=== PATIENT | male | born 1990 | race Caucasian/White ===

== ENCOUNTER 2017-02-26 05:06 | Emergency (ER) | payer OTHER ==
[2017-02-26 05:13] VITALS: BMI 20.7
[2017-02-26] MEDS ORDERED: SODIUM CHLORIDE 1,000 ML IV ONE (05:31)
[2017-02-26] MEDS ORDERED: ACETAMINOPHEN 1000 MG/100 ML VIAL (NON FORMULARY) IVPB ONE (05:31)
--- NOTE | 2017-02-26 05:40 | PDOC ---
History of Present Illness - General Chief Complaint: Cold Symptoms Stated Complaint: FEVER, BACK & NECK PAIN Time Seen by Provider: 02/26/17 05:18 History Source: Patient Exam Limitations: No Limitations - History of Present Illness Initial Comments: 02/26/17 05:40 This is a 26-year-old male who comes in with his parents for evaluation of fever and bodyaches. Patient is otherwise healthy however he says that he has been having some skeletal muscular type upper back pain primarily on the right hand side. Patient said that he went to work yesterday came home his back was hurting him but he is otherwise fine when he went to bed. Patient said he woke up just prior to coming in at about 4:30 this morning with a fever of 102 shaking chills and severe pain in the side of his neck back upper back and radiating down his right arm. Patient denies any headache or change in vision. Patient denies any recent travel. Patient denies any similar symptoms. Patient denies any IV drug use or being immunocompromised for any reason. Patient said he is otherwise healthy. PAST MEDICAL HISTORY: no significant history PAST SURGICAL HISTORY: no significant history FAMILY HISTORY: no pertinant history SOCIAL HISTORY: Pt lives with family and is employed. MEDICATIONS: reviewed ALLERGIES: As per nursing notes Review of Systems General: No fevers or chills, no weakness, no weight loss HEENT: No change in vision. No sore throat,. No ear pain CardioVascular: No chest pain or shortness of breath Respiratory:No cough, or wheezing. Gastrointestinal: no nausea, vomitting, diarrhea or constipation, No rectal bleeding Genitourinary: No dysuria, hematuria, or frequency Musculoskeletal: No joint or muscle pain or swelling Neurologic: No headache, vertigo, dizziness or loss of consciousness Psychiatric: nor depression Skin: No rashes or easy bruising Endocrine: no increased thirst or abnormal weight change Allergic: no skin or latex allergy All other systems reviewed and normal Exam: General: Well-nourished well-developed individual, no acute distress HEENT: Throat: Normal, tonsils normal, no erythema or exudate Neck: Supple, no meningeal signs, no lymphadenopathy, there is some diffuse tenderness on palpation of the right lateral neck with some muscle spasm. Eyes::Pupils equal reactive and round, extraocular motion intact Chest: Nontender to palpation Back: There is tenderness on palpation of the right upper back, upper thoracic spine, posterior shoulder and CVA area diffusely, There is no focal area of increased tenderness. Cardiac: S1-S2 normal, regular rate and rhythm, no murmurs rubs or gallops Respiratory: Lungs clear to auscultation bilateral Abdomen: Soft, nondistended, normal bowel sounds, nontender to palpation diffusely Extremities: Warm, dry, no cyanosis, clubbing, or edema Skin: No rashes Neuro: Alert and oriented x3, nonfocal exam, grossly intact, normal gait Psych: Normal mood and affect. 06:00 patient vomitted times one in ED, undigested food. 07:00 Care of patient transferred to Dr. Camara at 7 AM. Case discussed in detail with oncoming Emergency Physician including history, physical exam and ancillary studies. Oncoming Emergency Physician has assumed care for the patient and will complete the evaluation and treatment. Patient is aware of the plan. Pt is clinically unchanged and stable. Past History - Past Medical History Allergies/Adverse Reactions: Allergies Allergy/AdvReac Type Severity Reaction Status Date / Time No Known Allergies Allergy Verified 06/23/16 17:11 Home Medications: Ambulatory Orders Diazepam [Valium] 5 mg PO Q8H PRN #12 tablet MDD 3 02/26/17 Naproxen [Naprosyn] 500 mg PO BID PRN #20 tablet 02/26/17 Anemia: (SEASONAL ALLERGIES) - Psycho/Social/Smoking Cessation Hx Anxiety: No Suicidal Ideation: No Smoking History: Current every day smoker Have you smoked in the past 12 months: Yes Number of Cigarettes Smoked Daily: 20 Information on smoking cessation initiated: Yes 'Breaking Loose' booklet given: 02/26/17 Hx Alcohol Use: No Drug/Substance Use Hx: No Substance Use Type: None *Physical Exam - Vital Signs Last Vital Signs Temp Pulse Resp BP Pulse Ox 102.6 F H 122 H 18 123/75 122 H 02/26/17 05:18 02/26/17 05:08 02/26/17 05:08 02/26/17 05:08 02/26/17 05:08 ED Treatment Course - LABORATORY CBC & Chemistry Diagram: 02/26/17 05:50 02/26/17 05:50 *DC/Admit/Observation/Transfer Diagnosis at time of Disposition: Viral syndrome, Lymphadenopathy, Muscle strain - Discharge Dispostion Disposition: HOME Condition at time of disposition: Improved - Prescriptions Prescriptions: Naproxen [Naprosyn] 500 mg PO BID PRN #20 tablet PRN Reason: Pain Diazepam [Valium] 5 mg PO Q8H PRN #12 tablet MDD 3 PRN Reason: Pain - Referrals Referrals: Tigre Zabala MD [Primary Care Provider] - - Patient Instructions Printed Discharge Instructions: Muscle Strain, DI for Viral Upper Respiratory Infection -- Adult, DI for Lymphadenopathy Additional Instructions: Door evaluation today did not show any evidence of bacterial infection. It seems that your pain is localized to the muscles of your neck and shoulder and to probably have a viral infection that is making it worse. Your MRI did not show any evidence of abscess in the neck, but it did show swollen lymph nodes, known as lymphadenopathy. It is very important that your primary care physician perform further evaluations of this lymphadenopathy to make sure that it goes away. Return to the emergency department immediately with ANY new, persistent or worsening symptoms. You MUST call and follow up with your doctor tomorrow. Please make sure your doctor reviews the results of your emergency department evaluation. - Post Discharge Activity Work/School Note: Back to Work
[2017-02-26] MEDS ORDERED: KETOROLAC TROMETHAMINE 30 MG/1 ML VIAL IVPUSH ONE (05:59)
[2017-02-26] MEDS ORDERED: KETOROLAC TROMETHAMINE 30 MG/1 ML VIAL ONE (06:02)
[2017-02-26] MEDS ORDERED: ONDANSETRON 4 MG/2 ML VIAL ONE (06:02)
[2017-02-26] MEDS: ONDANSETRON 4 MG/2 ML VIAL IVPUSH ONE ×2 (06:09→07:23)
--- NOTE | 2017-02-26 06:49 | PDOC ---
*Physical Exam - Vital Signs Last Vital Signs Temp Pulse Resp BP Pulse Ox 102.6 F H 122 H 18 123/75 98 02/26/17 05:18 02/26/17 05:08 02/26/17 05:08 02/26/17 05:08 02/26/17 05:08 - Physical Exam Comments: 02/26/17 06:48 Sign-out received from outgoing Emergency Physician Pt interviewed and examined He is a 26-year-old, immunocompetent male, with no significant past medical history, who presents with 3 days of right-sided neck, shoulder, upper back pain and 12 hours of fever with chills as well as generalized weakness. He performs physical labor, and his neck/back/shoulder pain is a dull ache, constant, worsened by movement or palpation. He has NO midline neck pain. The pain in his neck does radiate slightly down the right arm. He denies headache, generalized neck pain. He denies rash, tick exposure. He denies sore throat, earache. He denies cough, dyspnea. He denies abdominal pain, nausea, vomiting, diarrhea. He denies urinary frequency/urgency/hesitancy/dysuria/hematuria. He denies upper or lower extremity paresthesias or weakness. He had 2 SIRS criteria on presentation, fever and tachycardia He has no left-sided neck tenderness or midline neck tenderness. He has tenderness in the distribution of the right trapezius muscle. Tenderness reproduces his symptoms. He has pain in that area with any range of motion at the shoulder. Chest x-ray, shoulder x-ray, thoracic spine x-ray reviewed by Dr. Munoz and myself, without any acute pathology Labs pending He states he feels much better Dr. Munoz reports that he looks subjectively much improved His father, who is at the bedside, agrees that he looks much improved Labs pending 02/26/17 08:51 The patient feels better and has increased range of motion in his neck and shoulder Labs noted including elevated CRP Given that he meets diagnostic for sepsis, has a high fever, looked toxic to initial emergency physician, has severe right sided neck pain with elevated CRP , I feel that we need to rule our cervical spinal epidural abscess Case discussed with Dr. George and MRI approved I have reached out to Dr. Hernández and am awaiting call-back In the interest of avoiding a delay in patient care, we will proceed 02/26/17 10:[address] George and report given to me by phone He has anterior and cervical lymphadenopathy but no evidence of spinal or soft tissue abscess He is now very well appearing, afebrile and normocardic He has greatly decreased neck pain He is eating and drinking, smiling in bed, and would like to go home Hi neck is supple. He has no headache and no photophobia. He again denies tick exposure and rash. With a neck MRI that showed only lymphadenopathy, a well appearing patient, normal vital signs, only minimal leukocytosis and no evidence of a bacterial infection, he most likely has a viral syndrome. He seems reliable, as do his parents, and he will return with any worsening or new symptoms. Clinical impression: Viral syndrome Cervical lymphadenopathy Musculoskeletal neck pain He understands the importance of following up with his primary care physician for further evaluation of the lymphadenopathy to ensure resolution I discussed the physical exam findings, ancillary test results and final diagnoses with the patient. I answered all of the patient's questions. The patient was satisfied with the care received and felt comfortable with the discharge plan and treatment plan. The patient will call their primary care physician within 24 hours to arrange follow-up and will return to the Emergency Department with any new, persistent or worsening symptoms. 02/26/17 17:08 ED Treatment Course - LABORATORY CBC & Chemistry Diagram: 02/26/17 05:50 02/26/17 05:50 - Medications Given in the ED: ED Medications Discontinued Medications Generic Name Dose Route Start Last Admin Trade Name Alvinq PRN Reason Stop Dose Admin Acetaminophen 1,000 mg 02/26/17 05:31 02/26/17 05:56 Ofirmev Injection - IVPB 02/26/17 05:32 1,000 mg ONCE ONE Administration Sodium Chloride 1,000 mls @ 1,000 mls/hr 02/26/17 05:31 02/26/17 05:55 Normal Saline - IV 02/26/17 06:30 1,000 mls/hr .Q1H ONE Administration Ketorolac Tromethamine 30 mg 02/26/17 05:59 02/26/17 06:09 Toradol Injection - IVPUSH 02/26/17 06:00 30 mg ONCE ONE Administration *DC/Admit/Observation/Transfer Diagnosis at time of Disposition: Viral syndrome, Lymphadenopathy, Muscle strain - Discharge Dispostion Disposition: HOME Condition at time of disposition: Improved - Prescriptions Prescriptions: Naproxen [Naprosyn] 500 mg PO BID PRN #20 tablet PRN Reason: Pain Diazepam [Valium] 5 mg PO Q8H PRN #12 tablet MDD 3 PRN Reason: Pain - Referrals Referrals: Tigre Zabala MD [Primary Care Provider] - - Patient Instructions Printed Discharge Instructions: DI for Viral Upper Respiratory Infection -- Adult, Muscle Strain, DI for Lymphadenopathy Additional Instructions: Door evaluation today did not show any evidence of bacterial infection. It seems that your pain is localized to the muscles of your neck and shoulder and to probably have a viral infection that is making it worse. Your MRI did not show any evidence of abscess in the neck, but it did show swollen lymph nodes, known as lymphadenopathy. It is very important that your primary care physician perform further evaluations of this lymphadenopathy to make sure that it goes away. Return to the emergency department immediately with ANY new, persistent or worsening symptoms. You MUST call and follow up with your doctor tomorrow. Please make sure your doctor reviews the results of your emergency department evaluation. - Post Discharge Activity Work/School Note: Back to Work
[2017-02-26 07:14] LABS: BASOPHIL 0.3 % (0-2.0); EOSINOPHIL 0.5 % (0-4.5); MCH 31.1 pg (25.7-33.7); MCHC 34.7 g/dl (32.0-35.9); MEAN CELL VOLUME 89.6 fl (80-96); MEAN PLT VOLUME 8.8 fl (7.5-11.1); NEUTROPHILS 82.5 % (42.8-82.8); PLATELET COUNT 203 K/MM3 (134-434); WHITE BLOOD COUNT 11.1 K/mm3 (4.0-10.0)
[2017-02-26 07:35] VITALS: PULSE 94; TEMP 99.8
[2017-02-26 07:43] LABS: ALBUMIN 4.2 g/dl (3.4-5.0); ALK PHOS 126 U/L (45-117); ANION GAP 7 (8-16); BILIRUBIN,TOTAL 0.4 mg/dL (0.2-1.0); CALCIUM 8.9 mg/dL (8.5-10.1); CO2 27 mmol/L (21-32); CREATININE 1.1 mg/dL (0.7-1.3); GLUCOSE,RANDOM 126 mg/dL (74-106); SGOT/AST 14 U/L (15-37); SGPT/ALT 18 U/L (12-78); TOT PROT 7.6 g/dl (6.4-8.2)
[2017-02-26 07:45] LABS: TROPONIN I < 0.02 ng/ml (0.00-0.05)
[2017-02-26] MEDS ORDERED: SODIUM CHLORIDE 1,000 ML IV STA (07:46)
[2017-02-26] MEDS ORDERED: diazePAM 5 MG TABLET PO ONE (07:49)
[2017-02-26 07:53] VITALS: BP 123/75
[2017-02-26] MEDS ORDERED: diazePAM 5 MG TABLET ONE (07:53)
[2017-02-26 09:08] LABS: D-DIMER < 200 ng/ml (<200-235)
[2017-02-26 09:09] LABS: URINE APPEARANCE CLEAR; URINE BILIRUBIN NEGATIVE (NEGATIVE); URINE BLOOD NEGATIVE (NEGATIVE); URINE COLOR YELLOW; URINE GLUCOSE (UA) NEGATIVE (NEGATIVE); URINE KETONE NEGATIVE (NEGATIVE); URINE PROTEIN NEGATIVE (NEGATIVE)
[2017-02-26 09:10] LABS: URINE LEUK ESTERASE NEGATIVE (NEGATIVE); URINE NITRITE NEGATIVE (NEGATIVE); URINE UROBILINOGEN NEGATIVE (0.2-1.0)
--- NOTE | 2017-02-26 16:14 | EKG ---
Test Reason : Blood Pressure : / mmHG Vent. Rate : 110 BPM Atrial Rate : 110 BPM P-R Int : 134 ms QRS Dur : 086 ms QT Int : 284 ms P-R-T Axes : 064 064 057 degrees QTc Int : 384 ms SINUS TACHYCARDIA POSSIBLE LEFT ATRIAL ENLARGEMENT NO PREVIOUS ECGS AVAILABLE Confirmed by MD JORDY, ROCHELLE ([id number]) on 02/26/2017 4:14:08 PM Referred By: MD DAWSON Confirmed By:ROCHELLE SPENCE MD
[2017-03-01 00:06] LABS: BABESIA MICROTI ANTIBODY IGG <1:10 (Neg:<1:10)
== END 2017-02-26 10:57 | disposition home or self-care (01) ==
LOC: FER 05:06
PROC: 3E033NZ Introduction of Analgesics, Hypnotics, Sedatives into Peripheral Vein, Percutaneous Approach (ICD-10-PCS; principal; 2017-02-26)
PROC: 3E0333Z Introduction of Anti-inflammatory into Peripheral Vein, Percutaneous Approach (ICD-10-PCS; 2017-02-26)
PROC: 3E0337Z Introduction of Electrolytic and Water Balance Substance into Peripheral Vein, Percutaneous Approach (ICD-10-PCS; 2017-02-26)
DX: R59.1 Generalized enlarged lymph nodes (principal); B34.9 Viral infection, unspecified; T14.8 Other injury of unspecified body region; X58.XXXA Exposure to other specified factors, initial encounter; Y93.9 Activity, unspecified; Y92.9 Unspecified place or not applicable; F17.210 Nicotine dependence, cigarettes, uncomplicated; J30.2 Other seasonal allergic rhinitis
CPT/HCPCS: 36415; 70543-TC; 71020-TC; 72070-TC; 73030-TC-RT; 80053; 81003; 82550; 83605; 83690; 84484; 85025; 85379; 85610; 86140; 86618; 86666; 86753; 87040; 87086; 93005; 99284-25

== ENCOUNTER 2017-02-27 15:00 | Observation (INO) | payer OTHER ==
[2017-02-27 15:30] VITALS: BMI 20.7
[2017-02-27] MEDS ORDERED: SODIUM CHLORIDE 0.9% 500 ML INFUS.BAG IV ONE (15:49)
--- NOTE | 2017-02-27 16:07 | PDOC ---
History of Present Illness <Bre Celestin - Last Filed: 02/27/17 18:19> - History of Present Illness Initial Comments: 02/27/17 16:10 26-year-old male with a negative past medical history He initially developed right posterior shoulder right sided neck and right upper back pain, and then developed a fever to 103 at 4 AM approximately 12 hours after developing the pain initially He came to the emergency department here at 5 AM TUESDAY, with a temperature close to 103 He denies any headache, rash, or tick exposure He does admit to a mild sore throat at this time, but no earache He denies any cough or sputum, wheezing or shortness of breath He denies any abdominal pain nausea vomiting or diarrhea He denies any urinary symptoms He denies any numbness or tingling He was seen initially with a temperature close to 103 and a heart rate of 122 He was seen initially by Dr. Munoz, and then had a continuation of care with Dr. Katz he During the course of his visit yesterday, his white count was 11.0 with a left shift His lactic acid was 1.2 The rest of his comp was unremarkable He C-reactive protein was 1.8 Blood cultures urine cultures, and babesiosis and ehrlichiosis titers were drawn He also had x-rays of the shoulder, T-spine, and chest, which were negative He was given IV fluid The pain was somewhat worse with musculoskeletal maneuvers, but still present at rest He did have an MRI done, which showed no epidural abscess Mild prominence of the adenoid soft tissue as well as the palatine tonsils Multiple enlarged cervical and posterior triangle lymph nodes No obvious evidence of disc I this or osteomyelitis The patient did feel better after medications and IV hydration, and was sent out with Naprosyn and Valium, to follow up with Dr. Zabala As of this time, his blood cultures are negative at 24 hours, and his tick borne illness panel is pending He states he is still intermittently running a fever He states that last night his temperature went down to 96.0, and then back up to 103 He is feeling somewhat better now, but still having right upper back/ periscapular pain, right neck pain, and right shoulder pain He states that he did have diarrhea during the night after taking Naprosyn He states his temperature was 101 this morning He has not taken any antibiotics He denies any other complaints at this time, and the remainder of the review of systems is negative <Beatriz Rodarte - Last Filed: 02/27/17 18:49> - General Chief Complaint: Respiratory Stated Complaint: REVISIT FOR FEVER Time Seen by Provider: 02/27/17 15:21 Past History <Bre Celestin - Last Filed: 02/27/17 18:19> - Past Medical History Anemia: (SEASONAL ALLERGIES) - Psycho/Social/Smoking Cessation Hx Anxiety: No Suicidal Ideation: No Smoking History: Current every day smoker Have you smoked in the past 12 months: Yes Number of Cigarettes Smoked Daily: 20 Information on smoking cessation initiated: Yes 'Breaking Loose' booklet given: 02/26/17 Hx Alcohol Use: Yes (OCCASIONAL BEER) Drug/Substance Use Hx: No Substance Use Type: None <Beatriz Rodarte - Last Filed: 02/27/17 18:49> - Past Medical History Allergies/Adverse Reactions: Allergies Allergy/AdvReac Type Severity Reaction Status Date / Time No Known Allergies Allergy Verified 06/23/16 17:11 Home Medications: Ambulatory Orders Diazepam [Valium] 5 mg PO Q8H PRN #12 tablet MDD 3 02/26/17 Naproxen [Naprosyn] 500 mg PO BID PRN #20 tablet 02/26/17 Review of Systems - Review of Systems Able to Perform ROS?: Yes Comments:: 02/27/17 16:18 12 point review of systems is as per history of present illness and otherwise negative <Beatriz Rodarte - Last Filed: 02/27/17 18:49> *Physical Exam - Vital Signs Last Vital Signs Temp Pulse Resp BP Pulse Ox 99.1 F 102 H 16 114/70 100 02/27/17 15:06 02/27/17 15:06 02/27/17 15:06 02/27/17 15:06 02/27/17 15:06 <Bre Celestin - Last Filed: 02/27/17 18:19> - Vital Signs Last Vital Signs Temp Pulse Resp BP Pulse Ox 99.1 F 102 H 16 114/70 100 02/27/17 15:06 02/27/17 15:06 02/27/17 15:06 02/27/17 15:06 02/27/17 15:06 - Physical Exam Comments: 02/27/17 16:19 Physical exam Last Vital Signs Temp Pulse Resp BP Pulse Ox 99.1 F 102 H 16 114/70 100 02/27/17 15:06 02/27/17 15:06 02/27/17 15:06 02/27/17 15:06 02/27/17 15:06 GENERAL: The patient is awake, alert, and fully oriented, and in no apparent distress. HEAD: Normal with no signs of trauma. EYES: sclera anicteric, conjunctiva are normal. ENT: nares patent, oropharynx clear without exudates. Moist mucous membranes. NECK: Patient can almost touch his chin to his chest, but not completely due to right lateral trapezius spasm, but no midline tenderness Right sided posterior cervical adenopathy is palpated, and to a lesser extent right sided anterior cervical adenopathy is palpated The thyroid is not enlarged or tender LUNGS: Breath sounds equal, clear to auscultation bilaterally. No wheezes, and no crackles. HEART: Regular rate and rhythm, normal S1 and S2 without murmur, rub or gallop. BACK: There is exquisite tenderness to palpation of the periscapular area, and right upper back, into the right shoulder and right lateral trapezius muscle There is muscle spasm, and diminished movement There is no erythema or redness, or warmth, and the shoulder is not swollen There is no tenderness on the C-spine T-spine or LS-spine There is no CVA tenderness ABDOMEN: Soft, nontender, normoactive bowel sounds. No guarding, no rebound. No masses appreciated. EXTREMITIES: Normal range of motion, no edema. No clubbing or cyanosis. No cords, erythema, or tenderness. NEUROLOGICAL: Cranial nerves II through XII grossly intact. Normal speech, normal gait. Motor 5 out of 5 and equal in the upper and lower extremities bilaterally Alert and oriented 3, grossly nonfocal neurologic exam PSYCH: Normal mood, normal affect. SKIN: Warm, Dry, no rashes seen <Beatriz Rodarte - Last Filed: 02/27/17 18:49> ED Treatment Course - LABORATORY CBC & Chemistry Diagram: 02/27/17 16:00 02/27/17 16:00 - ADDITIONAL ORDERS Additional order review: Laboratory Results 02/27/17 02/27/17 02/27/17 16:00 16:00 16:00 Sodium Potassium Chloride Carbon Dioxide Anion Gap BUN Creatinine Creat Clearance w eGFR Random Glucose Lactic Acid 0.933 Calcium Magnesium Total Bilirubin AST ALT Alkaline Phosphatase Creatine Kinase Troponin I C-Reactive Protein 8.0 H D Cancelled Total Protein Albumin 02/27/17 02/27/17 16:00 16:00 Sodium 137 Potassium 4.0 Chloride 104 Carbon Dioxide 25 Anion Gap 8 BUN 7 Creatinine 0.8 Creat Clearance w eGFR > 60 Random Glucose 90 Lactic Acid Calcium 8.8 Magnesium 1.7 L Total Bilirubin 0.4 AST 17 ALT 11 Alkaline Phosphatase 71 Creatine Kinase 64 Troponin I < 0.03 L C-Reactive Protein Total Protein 6.7 Albumin 3.6 02/27/17 15:40 Group A Strep Rapid Antigen - Final Throat NEGATIVE FOR THE ANTIGEN OF BETA HEMOLYTIC STREP GROUP A 02/27/17 16:00 RBC 4.91 MCV 87.9 MCHC 34.0 RDW 12.3 MPV 8.8 - Medications Given in the ED: ED Medications Discontinued Medications Generic Name Dose Route Start Last Admin Trade Name Freq PRN Reason Stop Dose Admin Acetaminophen 1,000 mg 02/27/17 17:53 02/27/17 18:05 Ofirmev Injection - IVPB 02/27/17 17:54 1,000 mg ONCE ONE Administration Sodium Chloride 1,000 ml 02/27/17 15:49 02/27/17 16:00 Normal Saline - IV 02/27/17 15:50 1,000 ml ONCE ONE Administration <Bre Celestin - Last Filed: 02/27/17 18:19> - LABORATORY CBC & Chemistry Diagram: 02/27/17 16:00 02/27/17 16:00 - RADIOLOGY Radiology Studies Ordered: Category Date Time Status CHEST CT WITHOUT CONTRAST [CT] Stat CT Scan 02/27/17 15:48 Ordered - Medications Given in the ED: ED Medications Discontinued Medications Generic Name Dose Route Start Last Admin Trade Name Freq PRN Reason Stop Dose Admin Sodium Chloride 1,000 ml 02/27/17 15:49 02/27/17 16:00 Normal Saline - IV 02/27/17 15:50 1,000 ml ONCE ONE Administration <Beatriz Rodarte - Last Filed: 02/27/17 18:49> Medical Decision Making - Medical Decision Making 02/27/17 18:[address] Call [address] to PCP Dr[address] Tigre Zabala at [phone]. Awaiting call back. <Bre Celestin - Last Filed: 02/27/17 18:19> - Medical Decision Making 02/27/17 16:35 Continuing symptomatology, although somewhat less then yesterday Exquisite right lateral trapezius right posterior periscapular, and right upper back and shoulder tenderness with minimal musculoskeletal movement, and also to palpation at rest No headache, no focal neurologic findings Extensive workup done yesterday Would recheck blood work at this time, hydrate, control pain Will check a Monospot and rapid strep Will check CT scan of the chest to rule out a right upper lobe or right periapical collection causing the symptoms 02/27/17 17:47 CT scan of the chest without-this is an imaging flight communications specialist report Referring Physician: Beatriz Britt Patient Name: Kushal Gonzalez THIS IS A PRELIMINARY REPORT FROM [facility] EXAM: CT chest without contrast IMAGES: [id number] DATE OF EXAM: 2017-02-27 16:36:51.0 REASON FOR EXAM: Rule out abscess or collections COMPARISON: None Findings: A few scattered nonspecific bilateral subcentimeter pulmonary nodules. Minimal mucous debris in the trachea. Mild atelectasis and scarring in the lungs. No acute infiltrates, pleural effusions, or pneumothorax. 2.7 cm right pericardial cyst. Minimal gynecomastia. Mild bilateral nephrolithiasis. No evidence for abscess or drainable fluid collections. THIS DOCUMENT HAS BEEN ELECTRONICALLY SIGNED Tigre Torres MD 02/27/2017 17:19 ALEXY Marin Please call [facility] [phone] ([phone]) with questions. 02/27/17 18:26 Laboratory Results - last 24 hr 02/27/17 02/27/17 02/27/17 16:00 16:00 16:00 WBC 7.8 RBC 4.91 Hgb 14.7 Hct 43.2 MCV 87.9 MCHC 34.0 RDW 12.3 Plt Count 186 MPV 8.8 Sodium 137 Potassium 4.0 Chloride 104 Carbon Dioxide 25 Anion Gap 8 BUN 7 Creatinine 0.8 Creat Clearance w eGFR > 60 Random Glucose 90 Lactic Acid Calcium 8.8 Magnesium 1.7 L Total Bilirubin 0.4 AST 17 ALT 11 Alkaline Phosphatase 71 Creatine Kinase 64 Troponin I < 0.03 L C-Reactive Protein Total Protein 6.7 Albumin 3.6 02/27/17 02/27/17 02/27/17 16:00 16:00 16:00 WBC RBC Hgb Hct MCV MCHC RDW Plt Count MPV Sodium Potassium Chloride Carbon Dioxide Anion Gap BUN Creatinine Creat Clearance w eGFR Random Glucose Lactic Acid 0.933 Calcium Magnesium Total Bilirubin AST ALT Alkaline Phosphatase Creatine Kinase Troponin I C-Reactive Protein Cancelled 8.0 H D Total Protein Albumin CRP has gone up to 8 today Lactic 0.9 The remainder improved from yesterday Given that he is still spiking fevers, and the CRP continues to increase, would like to place in observation for further workup Case discussed with Dr. Zabala-will place in observation Will call Dr. Askew for ID 02/27/17 18:46 Patient denies any history of IV drug abuse, or steroid use He denies any history of snorting drugs He denies any personal history of malignancy Case discussed with , ID Will start coverage with Zosyn and doxycycline Will see patient in consultation <Beatriz Rodarte - Last Filed: 02/27/17 18:49> *DC/Admit/Observation/Transfer <Bre Celestin - Last Filed: 02/27/17 18:19> - Discharge Dispostion Admit: Yes <Beatriz Rodarte - Last Filed: 02/27/17 18:49> Diagnosis at time of Disposition: Fever of unknown origin (FUO), Musculoskeletal pain - Discharge Dispostion Condition at time of disposition: Good - Referrals Referrals: Tigre Zabala MD [Primary Care Provider] -
[2017-02-27 16:30] LABS: MCH 29.9 pg (25.7-33.7); MEAN CELL VOLUME 87.9 fl (80-96); MEAN PLT VOLUME 8.8 fl (7.5-11.1); PLATELET COUNT 186 K/MM3 (134-434); RDW 12.3 % (11.9-15.9); WHITE BLOOD COUNT 7.8 K/mm3 (4.0-10.8)
[2017-02-27 16:46] LABS: CPK(DFH) 64 IU/L (38-174)
[2017-02-27 16:50] LABS: ALBUMIN 3.6 g/dl (3.5-5.0); ALK PHOS 71 U/L (32-92); ANION GAP 8 (8-16); BILIRUBIN,TOTAL 0.4 mg/dl (0.2-1.0); CALCIUM 8.8 mg/dl (8.4-10.2); CO2 25 mmol/L (22-28); COCKROFT - GAULT 125; CREATININE 0.8 mg/dl (0.6-1.3); GLUCOSE,RANDOM 90 mg/dl (74-106); MAGNESIUM 1.7 mg/dL (1.8-2.4); SGOT/AST 17 U/L (10-42); SGPT/ALT 11 U/L (10-40); TOT PROT 6.7 g/dl (6.4-8.3)
[2017-02-27 16:55] LABS: TROPONIN I (DFP) < 0.03 ng/ml (0.03-0.50)
[2017-02-27] MEDS ORDERED: ACETAMINOPHEN 1000 MG/100 ML VIAL (NON FORMULARY) IVPB ONE (17:53)
[2017-02-27] MEDS ORDERED: ACETAMINOPHEN INJECTION 100 ML IVPB ONE (18:01)
[2017-02-27] MEDS ORDERED: PIPERACILLIN/TAZOB 3.375 GM 3.375 GM in DEXTROSE 5%-WATER - 50 ML IVPB ONE (18:48)
[2017-02-27] MEDS ORDERED: DOXYCYCLINE INJECTION 100 MG in DEXTROSE 5%-WATER - 100 ML IVPB ONE (18:49)
[2017-02-27] MEDS ORDERED: DOXYCYCLINE HYCLATE 100 MG VIAL ONE (19:05)
[2017-02-27] MEDS ORDERED: PIPERACILLIN/TAZOBACTAM 3.375 GM VIAL IVPB ONE (19:05)
[2017-02-27] MEDS ORDERED: diazePAM 5 MG TABLET PO PRN (19:39)
[2017-02-27] MEDS ORDERED: ACETAMINOPHEN 325 MG TABLET (FP) PO PRN (19:41)
[2017-02-27] MEDS ORDERED: morphine CARPU-JECT 2 MG/1 ML DISP.SYRIN IVPUSH PRN (19:41)
[2017-02-27] MEDS ORDERED: DEXTROSE 5%-0.45% SALINE 1,000 ML IV SCH (19:45)
[2017-02-27] MEDS ORDERED: methylPREDNISolone NA SUCC 40 MG/1 ML VIAL ONE (20:27)
[2017-02-27] MEDS: methylPREDNISolone NA SUCC 40 MG/1 ML VIAL IVPB SCH (20:55)
--- NOTE | 2017-02-27 21:30 | HP ---
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 Has been havign some pain in rigth neck/ scapular area for a couple of weeks, but in past was only mild pain. Does not recall a particular inciting event, but started having fever and increased pain in right neck, along with slight post-nasal drip, about 2-4 days ago. Yesterday in morning had fever of 102 and could hardly move due to pain in back, so came to ED. Had xrays of neck and thoracic spine, which were negative, and also an MRI neck, which did not show any bony abnormalities or abscesses. With IVF and naproxen he felt a little better, so discharged form ED, but about 2AM this morning had fever of 104 and increased upper back/ scapular pain, so came to ED again. Had some tests sent for Lyme and babesiosis and mono (not back yet). Pain is in rigth upper back, between the spine and scapula. No skin lesions seen, no pain directly over spine. Was noted to have posterior cervical adenopathy on MRI done yesterday. Had some diarrhea over night as well, but may have been medication related, as no abd pain or nausea. 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 Home Medications - Allergies Allergies/Adverse Reactions: Allergies Allergy/AdvReac Type Severity Reaction Status Date / Time No Known Allergies Allergy Verified 06/23/16 17:11 - Home Medications Home Medications: Ambulatory Orders Diazepam [Valium] 5 mg PO Q8H PRN #12 tablet MDD 3 02/26/17 Naproxen [Naprosyn] 500 mg PO BID PRN #20 tablet 02/26/17 Family Disease History - Family Disease History Family Disease History: Other: Father (hypertension), Mother (hyperlipidemia) Review of Systems - Review of Systems Eyes: reports: No Symptoms HENT: reports: Throat Pain Cardiovascular: denies: Chest Pain, Palpitations Respiratory: denies: Cough, SOB, Wheezing Gastrointestinal: denies: Abdominal Pain, Nausea Genitourinary: denies: Burning, Discharge, Dysuria Neurological: denies: Change in LOC Physical Examination Vital Signs: Vital Signs Temperature 99.2 F 02/27/17 21:14 Pulse Rate 90 02/27/17 21:14 Respiratory Rate 16 02/27/17 21:14 Blood Pressure 95/49 02/27/17 21:14 O2 Sat by Pulse Oximetry (%) 98 02/27/17 21:14 Constitutional: Yes: Mild Distress (due to right upper back pain) Eyes: Yes: Conjunctiva Clear, EOM Intact, PERRL HENT: Yes: Atraumatic, Normocephalic Neck: Yes: Lymphadenopathy (posterior cervical bilaterally) Cardiovascular: Yes: Regular Rate and Rhythm, S1, S2. No: Murmur Respiratory: Yes: Regular, CTA Bilaterally Gastrointestinal: Yes: Normal Bowel Sounds, Soft. No: Distention, Tenderness Musculoskeletal: Yes: Other (tenderness right upper back, no skin lesions, no erythema) Edema: No Neurological: Yes: Alert, Oriented Labs: Laboratory Results - last 24 hr 02/27/17 02/27/17 02/27/17 16:00 16:00 16:00 WBC 7.8 RBC 4.91 Hgb 14.7 Hct 43.2 MCV 87.9 MCHC 34.0 RDW 12.3 Plt Count 186 MPV 8.8 Sodium 137 Potassium 4.0 Chloride 104 Carbon Dioxide 25 Anion Gap 8 BUN 7 Creatinine 0.8 Creat Clearance w eGFR > 60 Random Glucose 90 Lactic Acid Calcium 8.8 Magnesium 1.7 L Total Bilirubin 0.4 AST 17 ALT 11 Alkaline Phosphatase 71 Creatine Kinase 64 Troponin I < 0.03 L C-Reactive Protein Total Protein 6.7 Albumin 3.6 02/27/17 02/27/17 02/27/17 16:00 16:00 16:00 WBC RBC Hgb Hct MCV MCHC RDW Plt Count MPV Sodium Potassium Chloride Carbon Dioxide Anion Gap BUN Creatinine Creat Clearance w eGFR Random Glucose Lactic Acid 0.933 Calcium Magnesium Total Bilirubin AST ALT Alkaline Phosphatase Creatine Kinase Troponin I C-Reactive Protein Cancelled 8.0 H D Total Protein Albumin Problem List - Problems (1) Fever of unknown origin (FUO) Assessment/Plan: -viral syndrome? Mononucleosis? (mono pending) -given severe pain in upper back with the fevers, will admit for further evaluation -check MRI thoracic spine -(diskitis?) --ID consult -given blood cultures taken will start broad spectrum abx for now Code(s): R50.9 - FEVER, UNSPECIFIED (2) Musculoskeletal pain Assessment/Plan: -with CRP elevated, will start solumedrol for anti-inflammation (not tolerating naproxen) -Brachial Neuritis? herniated tharacic disc? (check MRI 0but this would ot explain fever) Code(s): M79.1 - MYALGIA (3) Lymphadenopathy Assessment/Plan: -due to viral syndrome/ mono? -awaiting further testing results to return Code(s): R59.1 - GENERALIZED ENLARGED LYMPH NODES
[2017-02-28] MEDS ORDERED: PIPERACILLIN/TAZOB 2.25 GM/50 ML PRE-DOCKED BAG IVPB ONE (02:00)
[2017-02-28] MEDS ORDERED: PIPERACILLIN/TAZOB 2.25 GM 50 ML IVPB SCH (02:00)
[2017-02-28 09:02] LABS: BASOPHIL 1.1 % (0-2.0); MCH 29.7 pg (25.7-33.7); MCHC 33.1 g/dl (32.0-35.9); MEAN CELL VOLUME 89.8 fl (80-96); MEAN PLT VOLUME 8.7 fl (7.5-11.1); NEUTROPHILS 81.5 % (42.8-82.8); PLATELET COUNT 180 K/MM3 (134-434); RDW 12.1 % (11.9-15.9); WHITE BLOOD COUNT 5.2 K/mm3 (4.0-10.8)
[2017-02-28 09:07] LABS: ANION GAP 7 (8-16); CALCIUM 8.9 mg/dl (8.4-10.2); CO2 24 mmol/L (22-28); COCKROFT - GAULT 125.68; CREATININE 0.8 mg/dl (0.6-1.3); GLUCOSE,RANDOM 181 mg/dl (74-106)
--- NOTE | 2017-02-28 09:34 | PN ---
Progress Note, Physician Chief Complaint: Mr Gonzalez says he is feeling better today. Back and neck pain much improved. Fevers has resolved. No cp, sob, n/v. - Current Medication List Current Medications: Active Medications Acetaminophen (Tylenol -) 650 mg PO Q4H PRN PRN Reason: FEVER OR PAIN Diazepam (Valium -) 5 mg PO Q8H PRN PRN Reason: MUSCLE SPASMS Dextrose/Sodium Chloride (D5-1/2ns -) 1,000 mls @ 75 mls/hr IV ASDIR [facility] Last Admin: 02/27/17 21:51 Dose: 75 mls/hr Piperacillin Sod/Tazobactam Sod (Zosyn 2.25gm Ivpb (Pre-Docked)) 50 mls @ 100 mls/hr IVPB Q8H-IV KENDRA PRN Reason: Protocol Piperacillin Sod/Tazobactam (Sod 3.375 gm/ Dextrose) 50 mls @ 100 mls/hr IVPB ONCE ONE PRN Reason: Protocol Stop: 02/28/17 09:51 Methylprednisolone Sodium Succinate (Solu-Medrol -) 40 mg IVPB BID@0800,2000 [facility] Last Admin: 02/27/17 20:55 Dose: 40 mg Morphine Sulfate (Morphine Injection -) 2 mg IVPUSH Q4H PRN PRN Reason: MODERATE PAIN - Objective Vital Signs: Vital Signs Temperature 97.4 F L 02/28/17 06:00 Pulse Rate 77 02/28/17 06:00 Respiratory Rate 18 02/28/17 08:45 Blood Pressure 116/49 02/28/17 06:00 O2 Sat by Pulse Oximetry (%) 100 02/28/17 08:44 Constitutional: Yes: Well Nourished, No Distress, Calm Cardiovascular: Yes: Regular Rate and Rhythm. No: Gallop, Murmur, Rub Respiratory: Yes: Regular, CTA Bilaterally. No: Rales, Rhonchi, Wheezes Gastrointestinal: Yes: Normal Bowel Sounds, Soft. No: Distention, Tenderness Extremities: Yes: WNL Edema: No Labs: CBC, BMP 02/28/17 08:40 02/28/17 08:40 Problem List - Problems (1) Fever of unknown origin (FUO) Assessment/Plan: -currently resolved -suspect viral illness -continue antibiotics currently -await ID evaluation -mono negative -parvovirus pending Code(s): R50.9 - FEVER, UNSPECIFIED (2) Musculoskeletal pain Assessment/Plan: -much improved -? secondary to inflammation -continue steroids currently but will taper Code(s): M79.1 - MYALGIA (3) Lymphadenopathy Assessment/Plan: -improving with steroids Code(s): R59.1 - GENERALIZED ENLARGED LYMPH NODES
[2017-02-28] MEDS ORDERED: PIPERACILLIN/TAZOB 3.375 GM 50 ML IVPB ONE (10:00)
[2017-02-28] MEDS ORDERED: methylPREDNISolone NA SUCC 40 MG/1 ML VIAL IVPB SCH (10:00)
[2017-02-28] MEDS: methylPREDNISolone NA SUCC 40 MG/1 ML VIAL IVPB SCH (11:25)
--- NOTE | 2017-02-28 13:35 | CONSULT ---
Consult - text type - Consultation Consultation Note: Orthopedic Consult Note S: 26 y/o male admitted for fever, R shoulder/neck pain. The patient states that on Tuesday he began having pain to the right "shoulder blade and neck." He states that on Tuesday he developed a fever of 104 degrees F, prompting him to go to the ED. He had imaging obtained and was discharged home. He states he was having a persistent fever and then returned to the ED. Since then he notes that his shoulder and neck pain have resolved. He states he has regained full motion and no longer having pain. Denies any trauma/falls/injury. Denies paresthesias. No previous neck, back or shoulder issues. PMH: None PSH: None Social: Denies ETOH, illicits, smoking Family hx: NC O: Vital Signs Temperature 97.4 F L 02/28/17 06:00 Pulse Rate 77 02/28/17 06:00 Respiratory Rate 18 02/28/17 08:45 Blood Pressure 116/49 02/28/17 06:00 O2 Sat by Pulse Oximetry (%) 100 02/28/17 08:44 CBC, BMP 02/28/17 08:40 02/28/17 08:40 VSS. NAD. Afebrile. Cervicothoracic exam: Vertebrae and paraspinal muscles non-tender. Negative Spurling. Full ROM and strength in all directions. R shoulder exam: No deformities. Non-tender. FROM, 5/5 strength infraspinatous, supraspinatous, subscapularis. Negative impingement. Negative Gong. NVID. Thoracic spine radiographs and MRI reviewed demonstrating no fracture/ dislocation or disc pathology. Shoulder radiographs reviewed demonstrating no fracture/dislocation. Orbits/face/neck MRI reviewed demonstrating no fracture/dislocation. A/P: 26 y/o male admitted for fever, likely viral syndrome -No shoulder or spine pathology noted on exam or imaging studies -Pain has resolved -No orthopedic intervention indicated -If any issues, patient can follow up out-patient -Plan discussed with Dr. Blount who was in agreement
--- NOTE | 2017-02-28 14:53 | CONSULT ---
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 patient mentions that the fever came on suddenly and it came with fever and chills Has been havign some pain in right side of the neck/ scapular area for a couple of weeks, but in past was only mild pain. Does not recall a particular inciting event, but started having fever and increased pain in right neck, along with slight post-nasal drip, about 2-4 days ago. patient came to the er and and was worked u[p which included imaging studies and also blood work which were essentially normal patient was discharged one day later he again spiked fevers and also it was found that the crp was very high and high fevers and patinet was admitted to the hospital The interesting fact is that patient has rashes all over the body intermittently which disappear after patient takes benadryl patient got one dose of abx and steroids and patient is now completely asymptomatic - History Source History Provided By: Patient, Family Member Limitations to Obtaining History: No Limitations - Alcohol/Substance Use Hx Alcohol Use: Yes (OCCASIONAL BEER) - Smoking History Smoking history: Current every day smoker Have you smoked in the past 12 months: Yes Aproximately how many cigarettes per day: 20 - Social History 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 Home Medications - Allergies Allergies/Adverse Reactions: Allergies Allergy/AdvReac Type Severity Reaction Status Date / Time No Known Allergies Allergy Verified 06/23/16 17:11 - Home Medications Home Medications: Ambulatory Orders Diazepam [Valium] 5 mg PO Q8H PRN #12 tablet MDD 3 02/26/17 Naproxen [Naprosyn] 500 mg PO BID PRN #20 tablet 02/26/17 Family Disease History - Family Disease History Family Disease History: Other: Father (hypertension), Mother (hyperlipidemia) Review of Systems - Review of Systems Constitutional: reports: Chills, Fever, Other (sweating) Eyes: reports: No Symptoms HENT: reports: No Symptoms Neck: reports: Swollen Glands Cardiovascular: reports: No Symptoms Respiratory: reports: No Symptoms Gastrointestinal: reports: No Symptoms Genitourinary: reports: No Symptoms Musculoskeletal: reports: Joint Pain, Other Integumentary: reports: No Symptoms Neurological: reports: No Symptoms Endocrine: reports: No Symptoms Hematology/Lymphatic: reports: No Symptoms Psychiatric: reports: No Symptoms Physical Exam Vital Signs: Vital Signs Temperature 97.4 F L 02/28/17 06:00 Pulse Rate 77 02/28/17 06:00 Respiratory Rate 18 02/28/17 08:45 Blood Pressure 116/49 02/28/17 06:00 O2 Sat by Pulse Oximetry (%) 100 02/28/17 08:44 Constitutional: Yes: No Distress, Calm, Thin Neck: Yes: Supple Cardiovascular: Yes: Regular Rate and Rhythm Respiratory: Yes: Regular, CTA Bilaterally Gastrointestinal: Yes: Normal Bowel Sounds, Soft Musculoskeletal: Yes: WNL Extremities: Yes: WNL Neurological: Yes: Alert, Oriented Psychiatric: Yes: Alert, Oriented Labs: CBC, BMP 02/28/17 08:40 02/28/17 08:40 Imaging - Results Chest X-ray: Report Reviewed, Image Reviewed Cat Scan: Report Reviewed, Image Reviewed MRI: Report Reviewed, Image Reviewed Assessment/Plan fever lymphadenopathy weakness i think this is more of an immunological/hematological process i doubt it is infectious issue plan no abx continue steroids will send an hiv test rest as per primary
[2017-02-28 15:01] VITALS: BP 114/58; PULSE 67; TEMP 98.3
--- NOTE | 2017-02-28 15:53 | DS ---
Physical Examination Vital Signs: Vital Signs Temperature 98.3 F 02/28/17 15:00 Pulse Rate 67 02/28/17 15:00 Respiratory Rate 17 02/28/17 15:00 Blood Pressure 114/58 02/28/17 15:00 O2 Sat by Pulse Oximetry (%) 100 02/28/17 15:00 Labs: CBC, BMP 02/28/17 08:40 02/28/17 08:40 Discharge Summary Reason For Visit: FEVER OF UNKNOWN ORIGIN (FUO) Current Active Problems Fever of unknown origin (FUO) (Acute) Musculoskeletal pain (Acute) Hospital Course: Mr Gonzalez is a pleasant 26 year old male who came in with fevers and back/ neck pain. He was admitted under observation. He was seen by ortho and ID. Pain resolved with steroids. MRI's were performed, no need for surgical intervention. Fevers do not appear infectious in nature, no need for antibiotics. Currently he is safe for discharge home. Condition: Good - Instructions Diet, Activity, Other Instructions: resume previous diet and activity. Excuse from work until Tuesday (03/04). Follow up with Dr Zabala on (03/03) for evaluation. Referrals: Tigre Zabala MD [Primary Care Provider] - Disposition: HOME - Home Medications Comprehensive Discharge Medication List: Ambulatory Orders Diazepam [Valium] 5 mg PO Q8H PRN #12 tablet MDD 3 02/26/17 Naproxen [Naprosyn -] 500 mg PO BID PRN #20 tablet 02/26/17 Prednisone [Deltasone -] 5 mg PO ASDIR #32 tab 02/28/17
[2017-02-28 17:54] LABS: HIV 1 & 2 AB NEGATIVE; HIV 1 AGp24 NEGATIVE
== END 2017-02-28 16:46 | disposition home or self-care (01) ==
LOC: FER 15:00 → SUPCPDRO 15:00 → FM/S 19:02
PROVIDERS: ADMIT Specialist; ATTEND Specialist
PROC: 3E03329 Introduction of Other Anti-infective into Peripheral Vein, Percutaneous Approach (ICD-10-PCS; principal; 2017-02-27)
PROC: 3E0333Z Introduction of Anti-inflammatory into Peripheral Vein, Percutaneous Approach (ICD-10-PCS; 2017-02-27)
PROC: 3E033NZ Introduction of Analgesics, Hypnotics, Sedatives into Peripheral Vein, Percutaneous Approach (ICD-10-PCS; 2017-02-27)
PROC: 3E0337Z Introduction of Electrolytic and Water Balance Substance into Peripheral Vein, Percutaneous Approach (ICD-10-PCS; 2017-02-27)
PROC: 3E033GC Introduction of Other Therapeutic Substance into Peripheral Vein, Percutaneous Approach (ICD-10-PCS; 2017-02-27)
DX: R50.9 Fever, unspecified (principal); M79.1 Myalgia; F17.210 Nicotine dependence, cigarettes, uncomplicated; R59.1 Generalized enlarged lymph nodes
CPT/HCPCS: 36415; 71250-TC; 72147-TC; 80048; 80053; 82550; 83605; 83735; 84484; 85025; 85027; 86140; 86308; 86747; 87070; 87077; 87389; 87430; 99284-25; C1887; G0378

== ENCOUNTER 2021-08-21 04:44 | Day surgery (SDC) | payer BC ==
[2021-08-17 18:17] VITALS: BMI 22.4
[2021-08-21 11:08] VITALS: TEMP 97.3
[2021-08-21 11:40] VITALS: BP 107/71; PULSE 69
== END 2021-08-21 11:55 | disposition home or self-care (01) ==
LOC: JASU-ENDO 04:44
PROVIDERS: ATTEND Internal Medicine Gastroenterology
PROC: 0DB68ZX Excision of Stomach, Via Natural or Artificial Opening Endoscopic, Diagnostic (ICD-10-PCS; 2021-08-21)
PROC: 0DB28ZX Excision of Middle Esophagus, Via Natural or Artificial Opening Endoscopic, Diagnostic (ICD-10-PCS; 2021-08-21)
PROC: 0DB38ZX Excision of Lower Esophagus, Via Natural or Artificial Opening Endoscopic, Diagnostic (ICD-10-PCS; 2021-08-21)
PROC: 0DB98ZX Excision of Duodenum, Via Natural or Artificial Opening Endoscopic, Diagnostic (ICD-10-PCS; principal; 2021-08-21 11:00)
DX: K21.9 Gastro-esophageal reflux disease without esophagitis (principal); K22.70 Barrett's esophagus without dysplasia; K29.50 Unspecified chronic gastritis without bleeding
CPT/HCPCS: 88305-TC; 88342-TC

== ENCOUNTER 2021-11-06 13:03 | Emergency (ER) | payer OTHER ==
[2021-11-06 13:07] VITALS: BP 150/81; PULSE 85; TEMP 97.8; BMI 24.3
[2021-11-06] MEDS ORDERED: DIPHTH,PERTUSS(ACELL),TET 0.5 ML DISP.SYRIN IM ONE (13:13)
== END 2021-11-06 13:47 | disposition home or self-care (01) ==
LOC: FER 13:03
PROC: 3E0234Z Introduction of Serum, Toxoid and Vaccine into Muscle, Percutaneous Approach (ICD-10-PCS; principal; 2021-11-06)
DX: S61.512A Laceration without foreign body of left wrist, initial encounter (principal); W26.8XXA Contact with other sharp object(s), not elsewhere classified, initial encounter
CPT/HCPCS: 99283-25; 99284-25

== ENCOUNTER 2024-03-08 13:52 | Emergency (ER) | payer BC ==
[2024-03-08 14:06] VITALS: BP 129/89; PULSE 89; RESP 16; TEMP 98; BMI 24.5
[2024-03-08] MEDS ORDERED: DEXAMETHASONE 4 MG TABLET (FP) ONE (14:11)
[2024-03-08] MEDS: DEXAMETHASONE 4 MG TABLET (FP) PO ONE (14:15)
[2024-03-08] MEDS: ALBUTEROL SO4 2.5/IPRATROPIUM 0.5 INH SOL 3 ML VIAL.NEB. NEB SCH (14:19)
== END 2024-03-08 15:38 | disposition home or self-care (01) ==
LOC: FER 13:52
DX: J45.901 Unspecified asthma with (acute) exacerbation (principal); R13.10 Dysphagia, unspecified
CPT/HCPCS: 93005; 99283-25

== ENCOUNTER 2024-05-30 17:28 | Emergency (ER) | payer BC ==
[2024-05-30 17:36] VITALS: RESP 18; BMI 23.6
[2024-05-30] MEDS ORDERED: NAPROXEN 500 MG TABLET ONE ×2 (19:16→19:17)
[2024-05-30] MEDS: NAPROXEN 500 MG TABLET PO ONE (19:23)
[2024-05-30 19:50] LABS: BASO % 0.7 % (0-2.0); EOS % 1.2 % (0-4.5); HEMATOCRIT 49.2 % (35.4-49); HEMOGLOBIN 16.5 GM/dL (11.7-16.9); LYMPH % 21.9 % (8-40); MCH 30.6 pg (25.7-33.7); MCHC 33.5 g/dl (32.0-35.9); MEAN CELL VOLUME 91.4 fl (80-96); MONO % 6.8 % (3.8-10.2); NEUT % 69.4 % (42.8-82.8); PLATELET COUNT 336 10^3/uL (134-434); RBC 5.39 M/mm3 (4.00-5.60); RDW 13.1 % (11.9-15.9); WHITE BLOOD COUNT 8.1 K/mm3 (4.0-10.0)
[2024-05-30 20:30] LABS: CALCIUM 9.7 mg/dL (8.5-10.1)
[2024-05-30 20:31] LABS: ALBUMIN 4.3 g/dl (3.4-5.0); BLOOD UREA NITROGEN 6.6 mg/dL (7-18)
[2024-05-30 20:32] LABS: MAGNESIUM 2.2 mg/dL (1.8-2.4)
[2024-05-30 20:34] LABS: CREATININE 0.9 mg/dL (0.55-1.3)
[2024-05-30 20:36] LABS: BILIRUBIN,TOTAL 0.5 mg/dL (0.2-1)
[2024-05-30 20:37] VITALS: BP 142/75; PULSE 73
[2024-05-30 20:40] VITALS: TEMP 97.4
== END 2024-05-30 20:44 | disposition home or self-care (01) ==
LOC: JER 17:28
DX: R07.89 Other chest pain (principal); M94.0 Chondrocostal junction syndrome [Tietze]; Z20.822 Contact with and (suspected) exposure to COVID-19
CPT/HCPCS: 0241U-QW; 36415; 71046-TC-FY; 80053; 83735; 84484; 85025; 93005; 93010; 99285-25

== ENCOUNTER 2024-11-02 01:26 | Emergency (ER) | payer BC ==
[2024-11-02 01:35] VITALS: BP 116/72; PULSE 80; RESP 16; TEMP 97.2; BMI 22.9
[2024-11-02] MEDS ORDERED: DEXAMETHASONE SOD PHOSPHATE 10 MG/1 ML VIAL ONE (01:49)
[2024-11-02] MEDS ORDERED: ACETAMINOPHEN INJECTION 100 ML ONE (01:49)
[2024-11-02] MEDS: ACETAMINOPHEN 1000 MG/100 ML BAG IVPB ONE (01:57)
[2024-11-02] MEDS: SODIUM CHLORIDE 0.9% 500 ML INFUS.BAG IV ONE (01:57)
[2024-11-02] MEDS: DEXAMETHASONE SOD PHOSPHATE 10 MG/1 ML VIAL IVPUSH ONE (01:58)
[2024-11-02 02:38] LABS: BASO % 0.3 % (0-2.0); HEMATOCRIT 46.7 % (35.4-49); LYMPH % 28.9 % (8-40); MCH 30.1 pg (25.7-33.7); MCHC 34.3 g/dl (32.0-35.9); MEAN PLT VOLUME 7.9 fl (7.5-11.1); MONO % 9.4 % (3.8-10.2); NEUT % 60.4 % (42.8-82.8); PLATELET COUNT 503 10^3/uL (134-434); RBC 5.31 M/mm3 (4.00-5.60); RDW 12.6 % (11.9-15.9); WHITE BLOOD COUNT 8.4 K/mm3 (4.0-10.0)
[2024-11-02 02:58] LABS: POTASSIUM 3.8 mmol/L (3.5-5.1)
[2024-11-02 02:59] LABS: CALCIUM 9.6 mg/dL (8.5-10.1)
[2024-11-02 03:00] LABS: ALBUMIN 3.7 g/dl (3.4-5.0); BLOOD UREA NITROGEN 5.8 mg/dL (7-18)
[2024-11-02 03:04] LABS: BILIRUBIN,TOTAL 0.5 mg/dL (0.2-1); CREATININE 0.9 mg/dL (0.55-1.3)
[2024-11-02 03:05] LABS: TOT PROT 7.2 g/dl (6.4-8.2)
== END 2024-11-02 04:00 | disposition home or self-care (01) ==
LOC: FER 01:26
PROC: 3E033NZ Introduction of Analgesics, Hypnotics, Sedatives into Peripheral Vein, Percutaneous Approach (ICD-10-PCS; principal; 2024-11-02)
PROC: 3E033GC Introduction of Other Therapeutic Substance into Peripheral Vein, Percutaneous Approach (ICD-10-PCS; 2024-11-02)
DX: R53.81 Other malaise (principal); J32.9 Chronic sinusitis, unspecified; R51.9 Headache, unspecified; R50.9 Fever, unspecified
CPT/HCPCS: 36415; 80053; 85025; 99284-25; J0131; J1100

== ENCOUNTER 2025-05-22 12:01 | Emergency (ER) | payer BC ==
[2025-05-22 12:13] VITALS: BP 125/86; PULSE 104; RESP 18; TEMP 98.8; BMI 23.6
== END 2025-05-22 14:21 | disposition home or self-care (01) ==
LOC: FER 12:01
DX: M25.511 Pain in right shoulder (principal); R20.2 Paresthesia of skin; R00.0 Tachycardia, unspecified
CPT/HCPCS: 71046-TC-FY; 73030-TC-RT-FY; 99284-25